=== PATIENT | female | born 1990 | race Caucasian/White ===

== ENCOUNTER 2016-12-28 13:24 | Emergency (ER) | payer MEDICAID ==
--- NOTE | ~2016-12-28 | ER ---
PATIENT'S NAME: HEMA ARGUELLO [facility] AGE: 26 Y [address] ROOM: [place] [id number] LOCATION: ED ADMIT DATE: 12/28/2016 ER/Outpatient Report DISCHARGE DATE: 12/28/2016 FAMILY PHYSICIAN: PHYSICIAN, NO ATTENDING PHYSICIAN: Wilfrido Goodman SEEN AT: 1340 hours. CHIEF COMPLAINT: Left-sided neck pain, left arm pain. HISTORY OF PRESENT ILLNESS: The patient is a 26-year-old female who on Sunday started having some intermittent pain involving the left side of her neck to her left arm. Said if she usually takes the Flexeril or Bunch, it subsides; however, today when she woke up the pain has been quite severe, the Flexeril or hydrocodone has not helped. The patient has been seen by a physician at [facility] and they have considered doing an MRI to look for any type of cervical disk issues. Today, she denies any fevers or chills. ALLERGIES: ALLERGIC TO CODEINE. CURRENT MEDICATIONS: She has used Flexeril and hydrocodone. MEDICAL HISTORY: No chronic diseases except for the intermittent left arm and shoulder pain. SURGERIES: None. SOCIAL HISTORY: Denies tobacco or alcohol use. REVIEW OF SYSTEMS: GENERAL HEALTH: Good. Works here in the hospital. HEAD AND EENT: No complaints of headache, visual changes, or sore throat. She does have a history of left-sided neck pain and posterior shoulder pain that radiates into her arm. RESPIRATORY: No cough or shortness of breath. CARDIOVASCULAR: No history of any hypertension or chest pain. GASTROINTESTINAL: No nausea or vomiting. NEURO: She has noticed some tingling in the 3rd, 4th, and 5th finger of her PATIENT'S NAME: HEMA ARGUELLO [facility] AGE: 26 Y [address] ROOM: [place] [address] LOCATION: ED ADMIT DATE: 12/28/2016 ER/Outpatient Report DISCHARGE DATE: 12/28/2016 FAMILY PHYSICIAN: PHYSICIAN, NO ATTENDING PHYSICIAN: Wilfrido Goodman left hand. PHYSICAL EXAMINATION: VITAL SIGNS: Blood pressure was 132/73, her temperature was 97.8, her respiratory rate 18, pulse 80, and her O2 saturation is 98% on room air. GENERAL APPEARANCE: White female. Well-nourished. She does appear grimacing holding her left arm. HEAD AND EENT: Some tenderness over the lateral trapezius. Range of motion of her neck appeared normal. There is no adenopathy or masses palpated. Left arm muscle tone appeared normal that had a good radial pulse. Sensation appeared grossly normal. DIAGNOSTIC DATA: MRI of her cervical spine did show a protrusion at C7-L1, otherwise unremarkable. ASSESSMENT: Recurrent left arm radicular pain, possible related to the protrusion disk at level C7-T1. PLANNED TREATMENT: Did prescribe a Medrol Dosepak. She is to continue the Bunch for pain. Recommend the use of ice or heat. The patient will follow up with either Dr. Jackson or Dr. Crews next week. Otherwise, sling. Try to limit activity as much as possible. OSVALDO BRADLEY FOR DO CHARU BAKER/elizabeth /[id number] d: 12/28/16 2301 t: 01/05/17 1209, OUTPATIENT REPORT
== END 2016-12-28 16:30 | disposition disaster alternative care site (69) ==
LOC: GMED 13:24
DX: M79.602 Pain in left arm (principal); M54.10 Radiculopathy, site unspecified; Z88.6 Allergy status to analgesic agent; Z79.899 Other long term (current) drug therapy

== ENCOUNTER → 2017-03-12 | Outpatient (CLI) | payer MEDICAID | END | disposition disaster alternative care site (69) | LOC: GRAD 03-05 13:00 | DX: N92.6 Irregular menstruation, unspecified (principal); N83.201 Unspecified ovarian cyst, right side; N88.8 Other specified noninflammatory disorders of cervix uteri; R10.2 Pelvic and perineal pain ==